=== PATIENT | male | born 1975 | race Caucasian/White ===

== ENCOUNTER 2024-10-01 15:23 | Emergency (ER) | payer OTHER ==
[~2024-10-01] VITALS: Ht 185.4 cm; Wt 109.1 kg
[2024-10-01] MEDS: KETOROLAC TROMETHAMINE 30 MG/ML VIAL IV STA (17:07)
[2024-10-01] MEDS: ONDANSETRON HCL INJ 2MG/ML 2ML 2 MG/ML VIAL IV STA (17:07)
[2024-10-01] MEDS: ACETAMINOPHEN 325 MG TAB PO ONE (17:07)
[2024-10-01] MEDS: SODIUM CHLORIDE 0.9% 1000ML 1,000 ML IV ONE (17:08)
[2024-10-01] MEDS ORDERED: IOPAMIDOL 370 MG/ML 100 ML INFUS..BTL INJ ONE (17:15)
[2024-10-01 17:54] VITALS: PULSE 85; RESP 16; TEMP 98.7
[2024-10-01] MEDS ORDERED: ONDANSETRON ODT4 MG PO (19:04)
[2024-10-01 19:24] VITALS: BP 106/57; O2SAT 97
== END 2024-10-01 19:21 | disposition home or self-care (01) ==
LOC: FSED 15:39
DX: R11.0 Nausea (principal); K52.9 Noninfective gastroenteritis and colitis, unspecified; E78.5 Hyperlipidemia, unspecified; K21.9 Gastro-esophageal reflux disease without esophagitis; E03.9 Hypothyroidism, unspecified; R53.1 Weakness; R53.81 Other malaise; F31.9 Bipolar disorder, unspecified; Z11.52 Encounter for screening for COVID-19
CPT/HCPCS: 0223U; 74177; 81003; 83518; 87086; 87400; 96374; 96375; 99284; J1885; J2405; J7030; Q9967